=== PATIENT | female | born 1970 | race Caucasian/White ===

== ENCOUNTER 2025-04-19 15:37 | Emergency (ER) | payer BC ==
[~2025-04-19] VITALS: Ht 161.3 cm; Wt 78.3 kg
[2025-04-19 15:40] VITALS: BP 116/80; PULSE 82; RESP 18; TEMP 98.2; O2SAT 100
--- NOTE | 2025-04-19 15:45 | Physician Documentation ---
History of Present Illness ~ Chief Complaint: Bite-insect Stated Complaint: BEE STING Time Seen by MD: 15:59 OK to notify your PCP?: Yes Source: patient Mode of Arrival: POV Exam Limitations: no limitations HPI 55-year-old female presents for yellow jacket bite to left forearm which occurred yesterday. She javan a marker around the redness yesterday and the redness has spread outside of the marked area so she is seeking treatment. She has not taken any medications for her pain yet she has tried taking Benadryl orally to help with the itching. Medication Reconciliation Allergies: Uncoded Allergies: YELLOW-JACKET (Allergy, Unknown, 04/19/25) Scheduled Doxycycline Monohydrate (Doxycycline Monohydrate), 1 CAP PO Q12H Hydrocortisone (hydrocortisone 1% cream), 1 APPLIC TOP Q12H Review of Systems All Other Systems at this time: Reviewed and Negative Physical Exam Vital Signs: RN Vital Signs have been reviewed: Yes, Temperature: 98.2, Source: Temporal, Heart Rate: 82, Respiratory Rate: 18, BP: 116/80, Pulse Oximetry: 100, Weight: 78.300 Oxygen Flow Rate: 0 Pulse Oximetry Reflects: adequate oxygenation Physical Exam General: Alert, no apparent distress. HEENT: PERRL, EOMI, no injection, moist mucous membranes. Neck: Full range of motion. Respiratory: Lungs clear, no respiratory distress. Chest: No accessory muscle use. Cardiovascular: Regular rate and rhythm, no murmurs. Gastrointestinal: Soft, nontender, nondistended. Bowels sounds present. Extremities: Normal range of motion, no deformity. Neurologic: Oriented x4. Psychiatric: Normal mood and affect. Skin: Normal color, warm and dry. Erythema and edema to left forearm. Approximately 6 cm x 9 cm oval shaped and hot to the touch. Progress Results/Orders Reviewed/noted all lab results: Yes Results/Orders Completed Orders - COBY OLIVAREZ Doxycycline 100mg Capsule (Vibramycin 10 (04/19/25 16:41) Medications Received in ER Medications (Trade) Dose Ordered Sig/Tex Route PRN Reason Start Time Stop Time Status Last Admin Dose Admin (VIBRAMYCIN 100mg capsule) 100 mg ONCE STAT PO 04/19/25 16:41 04/19/25 16:54 DC 04/19/25 16:56 100 MG Vital Signs 04/19/25 15:40 Temp 98.2 Pulse 82 Resp 18 B/P (MAP) 116/80 Pulse Ox 100 O2 Flow Rate 0 Medical Decision Making Additional info obtained from: old records Findings 55-year-old female presents with raised area of erythema around a yellow jacket bite on her left forearm. She marked it with a pen from yesterday in the redness has spread outside of the marked line approximately 6 cm x 9 cm oval shaped. I have given her the 1st dose of doxycycline while here in the department and sent a prescription to her pharmacy. She states that this is very itchy but then when she itches it is quite painful so I have prescribed some hydrocortisone cream to help prevent the itching. We discussed to avoid itching as this can cause a secondary infection requiring a different antibi otic. She has been given follow up instructions with her primary care provider and she agrees to this treatment plan. Differential Dx:Considerations: Include: Anaphylaxis, Fracture, Hematoma, Neurovascular injury, Retained foreign body Departure Disposition: 01 HOME / SELF CARE / HOMELESS Impression: Primary Impression: Cellulitis Condition: Stable Discharge Instructions: Cellulitis, Adult Additional Instructions: FOR FOR ANY SIGNS OF WORSENING INFECTION YOU MAY NEED A 2ND ANTIBIOTIC. PLEASE GIVE THE ANTIBIOTIC OR 3 DAYS TO START WORKING BEFORE YOU SHOULD NOTICE SOME IMPROVEMENT. KEEP ARM ELEVATED ABOVE THE LEVEL OF THE HEART TO PREVENT THE SWELLING FROM GOING DOWN INTO YOUR HAND. FOLLOW UP WITH HER PRIMARY CARE PROVIDER WITHIN THE NEXT WEEK AND RETURN BACK HERE FOR ANY NEW OR WORSENING SYMPTOMS. Referrals: NO PRIMARY CARE PROVIDER (PCP) Prescriptions Hydrocortisone (hydrocortisone 1% cream) 1 % Cream..g. 1 APPLIC TOP Q12H for 7 Days, #30 GM 0 Refills apply to affected area(s) Prov: COBY OLIVAREZ [facility] 04/19/25 Doxycycline Monohydrate (Doxycycline Monohydrate) 100 Mg Capsule 1 CAP PO Q12H for 7 Days, #14 CAP Prov: COBY OLIVAREZ [facility] 04/19/25 Education Educated: Patient Educated regarding: diagnosis, treatment, prognosis, need for follow up Additional Comment Medical Screen Exam This patient recieved a medical screening examination. After reviewing the individual's medical complaints with presenting symptoms and performing an appropriate physical examination, it was determined that no immediate life- threatening emergency medical condition is present. This individual is also not a women having contractions. Signature Scribe Signature: . Attestation: Scribed for Coby Olivarez [employer] D[employer] by Coby Richmond NP . 04/19/25 16:47 Parts of this note were created using [employer] voice recognition software program. While efforts were made to correct any mistakes made by this voice recognition software program, nonsensical phrases may remain in this note. In addition, there may be errors and syntax, grammar, content and spelling. COBY OLIVAREZ [facility] Apr 19, 2025 15:45
[2025-04-19] MEDS ORDERED: HYDR28CR14 TOP (16:43)
[2025-04-19] MEDS ORDERED: DOXY-460 PO (16:43)
[2025-04-19] MEDS: DOXYCYCLINE 100MG CAPSULE PO STA (16:56)
[2025-04-19] MEDS ORDERED: DOXY100C76 PO (17:45)
== END 2025-04-19 17:03 | disposition home or self-care (01) ==
LOC: ER 15:38
DX: L03.114 Cellulitis of left upper limb (principal)
CPT/HCPCS: 99283

== ENCOUNTER 2025-04-28 16:12 | Emergency (ER) | payer BC ==
[~2025-04-28] VITALS: Ht 160 cm; Wt 78.7 kg
[~2025-04-28 16:12] MED LIST: HYDR28CR14 TOP
[2025-04-28 16:15] VITALS: BP 159/76; PULSE 90; RESP 16; TEMP 98.1; O2SAT 100
--- NOTE | 2025-04-28 17:14 | RADIOLOGY REPORT ---
Indication: NECK PAIN Technique: DI CERVICAL SPINE LTDCSPINE LTD Comparison: None FINDINGS/IMPRESSION: Cervical vertebral body heights are maintained. Straightening of normal cervical spine curvature. M oderate multilevel disc space narrowing most pronounced at C5-6, C6-7. No prevertebral edema. Mild-to -moderate facet hypertrophic changes.
--- NOTE | 2025-04-28 17:14 | RADIOLOGY REPORT ---
Indication: ARM PAIN Technique: DI FOREARM,INCL.ONE JOINTFOREARM Comparison: None FINDINGS/IMPRESSION: No radiographic evidence for acute fracture or dislocation. No significant soft tissue edema. No rad iopaque foreign body. Moderate degenerative changes left wrist.
--- NOTE | 2025-04-28 17:15 | RADIOLOGY REPORT ---
Indication: HAND PAIN Technique: DI HAND, COMPLETE (3VW MIN), DI WRIST, COMPLETE (3VW MIN)HAND 3VW Comparison: None FINDINGS/IMPRESSION: Irregularity of the scaphoid mid to distal pole. Correlate with point tenderness to exclude fracture . Dptl-qs-ncwwovpu degenerate changes left wrist. Mild dorsal left wrist soft tissue edema. Qsxs-ls-ilmcvttc degenerate changes 1st MCP joint, PIP and DIP joints.
--- NOTE | 2025-04-28 17:15 | RADIOLOGY REPORT ---
Indication: HAND PAIN Technique: DI WRIST, COMPLETE (3VW MIN)HAND 3VW Comparison: None FINDINGS/IMPRESSION: Irregularity of the scaphoid mid to distal pole. Correlate with point tenderness to exclude fracture . Vszp-uz-gtzeskuk degenerate changes left wrist. Mild dorsal left wrist soft tissue edema. Yppp-gs-pgxqrlyh degenerate changes 1st MCP joint, PIP and DIP joints.
--- NOTE | 2025-04-28 17:16 | RADIOLOGY REPORT ---
Indication: PELVIS PAIN Technique: DI PELVIS,LIMITED 1-2 VIEWSPELVIS LTD Comparison: None FINDINGS/IMPRESSION: No radiographic evidence for acute fracture or dislocation. No significant soft tissue edema. No rad iopaque foreign body. Agwp-pc-pvafhxig degenerative changes bilateral hips. Aedi-mc-kolslwyb bilatera l sacroiliac degenerative joint disease.
== END 2025-04-28 23:13 | disposition left against medical advice (07) ==
LOC: ER 16:12
DX: S50.812A Abrasion of left forearm, initial encounter (principal); M54.50 Low back pain, unspecified; V89.2XXA Person injured in unspecified motor-vehicle accident, traffic, initial encounter; Y93.89 Activity, other specified; Y92.89 Other specified places as the place of occurrence of the external cause; Y99.8 Other external cause status
CPT/HCPCS: 72040; 72170; 73090; 73110; 73130

== ENCOUNTER 2025-07-03 19:03 | Emergency (ER) | payer BC ==
[~2025-07-03] VITALS: Ht 152.4 cm; Wt 75.0 kg
[2025-07-03] MEDS ORDERED: PRED10TA23 PO (19:31)
--- NOTE | 2025-07-03 19:32 | Physician Documentation ---
History of Present Illness ~ Chief Complaint: Rash Stated Complaint: POISON OAK Time Seen by MD: 19:13 Primary Medical Doctor: NONE HPI 55-year-old female returns to the ED with ongoing poison no complaints. She states over a week ago she received a Kenalog shot for her poison oak. Still is having symptoms in his requesting further evaluation Medication Reconciliation Allergies: Coded Allergies: bee pollen (Verified Allergy, Unknown, 07/03/25) Scheduled Hydrocortisone (hydrocortisone 1% cream), 1 APPLIC TOP Q12H Prednisone (Prednisone), 1 TAB PO BID Review of Systems All Other Systems at this time: Reviewed and Negative ROS As stated above in the HPI, otherwise all systems are reviewed and negative. Physical Exam Vital Signs: Temperature: 97.5, Source: Temporal, Heart Rate: 97, Respiratory Rate: 15, BP: 155/82, Pulse Oximetry: 99, Weight: 75.000 Physical Exam General: Alert, no apparent distress. Respiratory: Lungs clear, no respiratory distress. Extremities: Normal range of motion, no deformity. Neurologic: Oriented x4. Psychiatric: Normal mood and affect. Skin: Normal color, warm and dry. No edema, no ecchymosis. All over body rash Progress Results/Orders Results/Orders Completed Orders - SHAHBAZ SANCHEZ [employer] Hydrocortisone 1% Cream (Hydrocortisone (07/03/25 19:30) Vital Signs 07/03/25 07/03/25 19:16 19:45 Temp 97.5 Pulse 97 Resp 15 17 B/P (MAP) 155/82 Pulse Ox 99 Medical Decision Making Findings Advise the patient then a Kenalog shot is not advised this close in recent administration. Offered to start her on prednisone low dose and tapering to help with her symptoms Differential Dx:Considerations: Include: Abscess, AIDS/HIV, Anthrax (cutaneous), Atopic dermatitis, Candidiasis, Contact dermatitis, Drug reaction, Erythema multiforme, Erysipelas, Gangrene, Herpes zoster, Herpes simplex, Hidradenitis suppurativa, Impetigo, Intertrigo, Lymes disease, Molluscum contagiosum, Osteomyelitis, Pediculosis, Pityriasis rosea, Psoriaisis, RMSF, Rosacea, Scabies, Scarlet fever, Tinea, Urticaria, Varicella, Viral exanthema, Other Departure Disposition: 01 HOME / SELF CARE / HOMELESS Impression: Primary Impression: Urticaria Additional Impression: Allergic contact dermatitis Condition: Stable Discharge Instructions: Contact Dermatitis Referrals: NO PRIMARY CARE PROVIDER (PCP) Prescriptions Prednisone (Prednisone) 10 Mg Tablet 1 TAB PO BID for 5 Days, #10 TAB Prov: SHAHBAZ SANCHEZ NP 07/03/25 Education Educated: Patient Educated regarding: diagnosis Signature Scribe Signature: f Attestation: Scribed for Shahbaz Sanchez Np by Shahbaz Richmond NP . 07/03/25 19:58 SHAHBAZ SANCHEZ NP Jul 03, 2025 19:31
[2025-07-03] MEDS: hydrocortisone 1% cream 28gm TP ONE (19:59)
[2025-07-03 20:10] VITALS: BP 118/87; PULSE 74; RESP 15; TEMP 98.5; O2SAT 100
== END 2025-07-03 20:15 | disposition home or self-care (01) ==
LOC: ER 19:04
DX: L23.7 Allergic contact dermatitis due to plants, except food (principal); Z88.8 Allergy status to other drugs, medicaments and biological substances; Z91.030 Bee allergy status
CPT/HCPCS: 99283